=== PATIENT | male | born 1960 ===

== ENCOUNTER 2016-06-02 20:53 | Emergency (ER) | payer SELFPAY ==
[2016-06-02 21:03] VITALS: TEMP 98.3
[2016-06-02 22:42] VITALS: BP 112/68; PULSE 67; RESP 15; O2SAT 97
[2016-06-02 23:09] LABS: BASO % 0.3 % (0.0-2.0); EOS # 0.2 K/uL (0.0-0.7); HEMATOCRIT 38.8 % (35.0-51.0); LYMPH % 34.9 % (20.0-40.0); MEAN CELL VOLUME 86.4 fl (80.0-94.0); MEAN CORPUSCULAR HEMOGLOBIN 28.8 pg (27.0-31.0); MEAN CORPUSCULAR HGB CONC 33.3 g/dL (33.0-37.0); MEAN PLATELET VOLUME 10.5 fl (7.2-11.7); MONO # 0.6 K/uL (0.0-0.8); MONO % 7.2 % (0.0-10.0); NEUT # 4.7 K/uL (1.8-7.0); NEUT % 55.6 % (50.0-75.0); RED CELL DISTRIBUTION WIDTH 14.5 % (11.5-14.5); WHITE BLOOD COUNT 8.5 K/uL (4.8-10.8)
[2016-06-02 23:16] LABS: ALB/GLOB RATIO 1.2 (1.0-2.1); ALKALINE PHOSPHATASE 63 U/L (38-126); ALT/SGPT 30 U/L (21-72); AST/SGOT 49 U/L (17-59); BILIRUBIN,TOTAL 0.3 mg/dl (0.2-1.3); BLOOD UREA NITROGEN 14 mg/dl (9-20); CALCIUM 8.4 mg/dL (8.4-10.2); CARBON DIOXIDE 20 mmol/L (22-30); CHLORIDE 101 mmol/L (98-107); GFR AFRICAN-AMERICAN > 60; GLUCOSE,RANDOM 118 mg/dL (75-110); POTASSIUM 2.9 MMOL/L (3.6-5.0); SODIUM 135 mmol/l (132-148); TOTAL PROTEIN 7.1 G/DL (6.3-8.2)
[2016-06-02] MEDS ORDERED: Potassium Chloride 20 mEq ER Tab PO ONE (23:25)
--- NOTE | 2016-06-03 04:05 | ED PDOC ---
HPI: Psych/Substance Abuse Time Seen by Provider: 06/02/16 21:14 Chief Complaint (Nursing): Alcohol Ingestion Chief Complaint (Provider): etoh Additional Complaint(s): 55yo M bought to ED via EMS for intoxication-pt with slurred speech, alcohol on breath and unstable gait. Past Medical History Reviewed: Historical Data, Nursing Documentation, Vital Signs Vital Signs: Last Vital Signs Temp 98.3 F 06/02/16 21:01 Pulse 67 06/02/16 22:41 Resp 15 06/02/16 22:41 BP 112/68 06/02/16 22:41 Pulse Ox 97 06/02/16 22:41 - Family History Family History: States: No Known Family Hx - Allergies Allergies/Adverse Reactions: Allergies Allergy/AdvReac Type Severity Reaction Status Date / Time Unobtainable Allergy Verified 06/02/16 21:03 Review of Systems ROS Statement: Except As Marked, All Systems Reviewed And Found Negative Constitutional: Negative for: Fever, Chills Physical Exam - Reviewed Nursing Documentation Reviewed: Yes Vital Signs Reviewed: Yes - Physical Exam Appears: Positive for: Non-toxic (homless, unstable gait slurred speech), No Acute Distress Head Exam: Positive for: ATRAUMATIC, NORMAL INSPECTION, NORMOCEPHALIC Skin: Positive for: Normal Color, Warm, DRY Eye Exam: Positive for: Normal appearance, EOMI, PERRL Cardiovascular/Chest: Positive for: Regular Rate, Rhythm Respiratory: Positive for: CNT, Normal Breath Sounds Neurologic/Psych: Positive for: Alert, Oriented - Laboratory Results Result Diagrams: 06/02/16 21:45 06/02/16 21:45 Interpretation Of Abn Labs: K+ was low-given Kdur. - ECG ECG Rhythm: Positive for: Normal QRS, Normal ST Segment, Sinus Rhythm O2 Sat by Pulse Oximetry: 97 - Progress ED Course And Treament: intoxication will get Blood work and observed in ED until clinically sober Medical Decision Making Medical Decision Making: pt stable and clinically sober,ready for d.c Disposition - Clinical Impression Clinical Impression: Alcohol abuse - Patient ED Disposition Is Patient to be Admitted: No Counseled Patient/Family Regarding: Need For Followup - Disposition Disposition: Routine/Home Disposition Time: 04:06 Condition: STABLE
--- NOTE | 2016-06-03 11:20 | CARD ---
APPROVED REPORT EKG Measurement Heart [id number] NV [id number] <Conclusion> Normal sinus rhythm Normal ECG
== END 2016-06-03 04:20 | disposition home or self-care (01) ==
LOC: H.ER 20:53
DX: F10.10 Alcohol abuse, uncomplicated (principal); R47.81 Slurred speech
CPT/HCPCS: 80053; 82948; 85025; 93005; 99282; G0480